=== PATIENT | male | born 1960 | race Two or more races ===

== ENCOUNTER 2019-08-29 16:32 | Inpatient (IN) | payer MEDICARE, OTHER ==
[~2019-08-29] VITALS: Ht 167.6 cm; Wt 68.5 kg
[2019-08-29] MEDS: Phenylephrine 50 MG in D5W 245 ML IV SCH (01:20)
--- NOTE | 2019-08-29 16:32 | NUR ---
ED Nurse Note: Pt brought in by ambulance d/t shortness of breath and altered mental status. Per pt's partner, pt was having difficulty breathing for 2 days, but refused to see the doctor. He said that the pt became worse today, and he started hallucinating things that were not there. Pt is short of breath, tacypneic, and audible ronchi noted. RT @ bedside. Pt is noted to be cold and diaphoretic. Pt unable to speak in full sentences. Pt's baseline is A+Ox4, but he is altered mentally in ED. IV inserted on right AC by paramedics. Left AC inserted in ED. Pt is tachycardic @ 110 bpm. O2 saturation 100% on 15 L non rebreather. Respiratory rate 32. Rectal temp 97.3. Pt placed on monitored bed.
[2019-08-29 16:40] VITALS: BP 73/40
[2019-08-29] MEDS ORDERED: Vancomycin 1 GM in NS 275 ML IV ONE (16:45)
[2019-08-29] MEDS ORDERED: Piperacillin/Tazobactam 3.375 GM in NS 110 ML IVPB ONE (16:45)
--- NOTE | 2019-08-29 16:46 | Emergency Room Report ---
History of Present Illness General Chief Complaint: Dyspnea/Respdistress Source: EMS Present Illness HPI Disclaimer: Please note that this report is being documented using DRAGON technology. This can lead to erroneous entry secondary to incorrect interpretation by the dictating instrument. HPI: 59-year-old male history of HIV, nonspecified intrathoracic surgery presents for evaluation of shortness of breath. He arrives by EMS. EMS states they were called to the house for worsening respiratory status over the past hour however he has been having difficulty breathing and cough over the past few days. The patient appears confused and mostly nonverbal. He is grunting and tachypneic. They found him hypoxic saturating in the low 80s but improved with nonrebreather. They also found him hypotensive with systolics in the 70s. Did not start IV fluids as they noted diffuse crackles and concern of fluid overload. Unknown whether or not the patient is actively being treated for HIV. Cannot obtain any additional history from patient PMH: Unable to obtain PSH: Unable to obtain Allergies: Unable to obtain Social Hx: Unable to obtain Allergies: Coded Allergies: No Known Allergies (Unverified , 08/29/19) Nursing Documentation-PMH Hx Hypertension: Yes Review of Systems All Other Systems: limited - Unable to obtain from patient due to clinical condition Physical Exam Vital Signs Date Time Temp Pulse Resp B/P (MAP) Pulse Ox O2 Delivery O2 Flow Rate FiO2 08/29/19 16:25 110 22 73/40 (51) 94 Simple Mask 10.0 General: Awake, moderate respiratory distress, hypotensive HEENT: NC/AT. EOMI. Cardiovascular: Tachycardic. S1 and S2 normal. No murmur appreciated Resp: Tachypnea, slight increase in work of breathing. Intermittent cough. Diffuse crackles bilaterally. On a nonrebreather saturating 94% on 10 L Abdomen: Abdomen is soft, nondistended. Nontender Skin: Intact. No abrasions, laceration or rash over the exposed skin MSK: Normal tone and bulk. Moving all extremities. No obvious deformity. No lower extremity edema Neuro: Awake, not answering verbally. Making good eye contact. Moving extremities Procedures Critical Care Time Critical Care Time Total critical care time: Approximately 65 minutes Due to a high probability of clinically significant, life threatening deterioration, the patient required the highest level of preparedness to intervene emergently and I personally spent this critical care time directly and personally managing the patient. This critical care time included obtaining a history, examining the patient, pulse oximetry, ordering and reviewing studies , ordering treatments, evaluating response to treatment and updating management plan as needed, frequent reassessment and discussion with other providers as well as arranging for ultimate disposition. This critical to care time was performed to assess and manage the high probability of life-threatening deterioration that could result in multiorgan failure. This critical care time is separate from the separately billable procedures and treating other patients. Central Line Central Line : Consent: Emergent Central Line Lumen: triple Maximal Sterile Barrier Tech: yes cap, yes mask, yes sterile gown, yes sterile gloves, yes large sterile sheet, yes hand hygiene, yes chlorhexidine prep No Max Barrier Tech Because: emergency insertion Central Line Postion: internal jugular (R) Anesthesia: Lidocaine cc's of anesthesia: 5 Complications: none Central Line Post Position: sutured, good blood return, position confirmed w / CXR Attempts: One Patient Tolerated: Well Complications: None Intubation Intubation : Consent: Emergent Time of Intubation: 21:00 Intubation Method: orotracheal Tube Size (cm): 7.5 Medications: Etomidate - 20mg, Rocuronium - 100mg Breath Sounds after Intubation: equal Intubation Complications: no complications Post Intubation Xray: Yes Progress/Xray Impression: ET tube in appropriate position Attempts: One Patient Tolerated: Well Complications: None Medical Decision Making Diagnostic Impression: Primary Impression: Pneumonia Additional Impressions: Sepsis NAIMA (acute kidney injury) ER Course 59-year-old male history of HIV presents for evaluation of respiratory distress. He was found hypotensive and hypoxic. Biggest concern for sepsis, pneumonia, bronchitis, ACS, COPD, CHF exacerbations. Start broad metabolic infectious work-up. Sepsis level fluids initiated. He will be treated empirically with broad antibiotics. He will require admission. Laboratory Tests Test 08/29/19 16:39 08/29/19 16:40 08/29/19 17:14 08/29/19 18:00 Arterial Blood pH 7.190 (7.350-7.450) Arterial Blood Partial Pressure CO2 34.4 mmHg (35.0-45.0) L Arterial Blood Partial Pressure O2 225.1 mmHg (75.0-100.0) H Arterial Blood HCO3 12.8 mmol/L (22.0-26.0) *L Arterial Blood Oxygen Saturation 98.7 % (95-100) Arterial Blood Base Excess -14.3 (-2-2) *L Kash Test Positive White Blood Count 4.2 K/UL (4.8-10.8) L Pending Red Blood Count 3.66 M/UL (4.70-6.10) L Hemoglobin 10.1 G/DL (14.2-18.0) L Hematocrit 34.4 % (42.0-52.0) L Mean Corpuscular Volume 94 FL (80-99) Mean Corpuscular Hemoglobin 27.5 PG (27.0-31.0) Mean Corpuscular Hemoglobin Concent 29.3 G/DL (32.0-36.0) L Red Cell Distribution Width 18.1 % (11.6-14.8) H Platelet Count 86 K/UL (150-450) L Mean Platelet Volume 11.8 FL (6.5-10.1) H Neutrophils (%) (Auto) % (45.0-75.0) Lymphocytes (%) (Auto) % (20.0-45.0) Monocytes (%) (Auto) % (1.0-10.0) Eosinophils (%) (Auto) % (0.0-3.0) Basophils (%) (Auto) % (0.0-2.0) Differential Total Cells Counted 100 Neutrophils % (Manual) 40 % (45-75) L Lymphocytes % (Manual) 26 % (20-45) Monocytes % (Manual) 8 % (1-10) Eosinophils % (Manual) 0 % (0-3) Basophils % (Manual) 0 % (0-2) Metamyelocytes % 1 % (0-0) H Myelocytes % 2 % (0-0) H Band Neutrophils 23 % (0-8) H Nucleated Red Blood Cells 6 /100 WBC Reactive Lymphocytes 1+ Platelet Estimate Decreased L Platelet Morphology Normal Polychromasia 1+ Anisocytosis 1+ Macrocytosis 1+ Sodium Level 135 MMOL/L (136-145) L Potassium Level 3.7 MMOL/L (3.5-5.1) Chloride Level 94 MMOL/L (98-107) L Carbon Dioxide Level 16 MMOL/L (21-32) L Anion Gap 25 mmol/L (5-15) H Blood Urea Nitrogen 65 mg/dL (7-18) H Creatinine 3.3 MG/DL (0.55-1.30) H Estimate Glomerular Filtration Rate 19.4 mL/min (>60) Glucose Level 109 MG/DL (74-106) H Lactic Acid Level 16.00 mmol/L (0.4-2.0) H 10.60 mmol/L (0.66-2.22) H Calcium Level 9.1 MG/DL (8.5-10.1) Phosphorus Level 11.6 MG/DL (2.5-4.9) H Magnesium Level 4.2 MG/DL (1.8-2.4) H Total Bilirubin 1.0 MG/DL (0.2-1.0) Aspartate Amino Transferase (AST) 66 U/L (15-37) H Alanine Aminotransferase (ALT) 21 U/L (12-78) Alkaline Phosphatase 172 U/L (46-116) H Total Creatine Kinase 19 U/L (26-308) L Creatine Kinase MB 0.8 NG/ML (0.0-3.6) Creatine Kinase MB Relative Index 4.2 Troponin I 0.000 ng/mL (0.000-0.056) Pro-B-Type Natriuretic Peptide 4385 pg/mL (0-125) H Total Protein 6.4 G/DL (6.4-8.2) Albumin 1.6 G/DL (3.4-5.0) L Globulin 4.8 g/dL Albumin/Globulin Ratio 0.3 (1.0-2.7) L Urine Color Brown Urine Appearance Slightly cloudy Urine pH 5 (4.5-8.0) Urine Specific Grundy 1.015 (1.005-1.035) Urine Protein 2+ (NEGATIVE) H Urine Glucose (UA) Negative (NEGATIVE) Urine Ketones 1+ (NEGATIVE) H Urine Blood 4+ (NEGATIVE) H Urine Nitrite Negative (NEGATIVE) Urine Bilirubin 1+ (NEGATIVE) H Urine Ictotest Negative (NEGATIVE) Urine Urobilinogen 8 MG/DL (0.0-1.0) H Urine Leukocyte Esterase 1+ (NEGATIVE) H Urine RBC 5-10 /HPF (0 - 0) H Urine WBC 15-20 /HPF (0 - 0) H Urine Squamous Epithelial Cells Few /LPF (NONE/OCC) Urine Bacteria Moderate /HPF (NONE) H Lymphocytes Pending Percent CD3 Cells Pending Absolute CD3 Count Pending Percent CD4 Cells Pending Absolute CD4 Count Pending T-Lymphocyte CD4/CD8 Ratio Pending Percent CD8 Cells Pending Absolute CD8 Count Pending Microbiology Date/Time Source Procedure Growth Status 08/29/19 16:40 Nasal Nares - Final Complete 08/29/19 16:40 Nasal Nares - Final Complete EKG Diagnostic Results EKG Time: 16:25 Rate: tachycardiac Other Impression Tachycardic, otherwise difficult to interpret due to significant baseline irregularity Rhythm Strip Diag. Results Rhythm Strip Time: 16:25 EP Interpretation: yes Rate: 110s Chest X-Ray Diagnostic Results Chest X-Ray Diagnostic Results : Chest X-Ray Ordered: Yes # of Views/Limited/Complete: 1 View Indication: Shortness of Breath EP Interpretation: Yes Interpretation: other - Bilateral infiltrates, slight effusion on the right , opacification of the right upper lobe possibly postsurgical Impression: Other - Bilaterally infiltrates consistent with pneumonia Other X-Ray Diagnostic Results Other X-Ray Diagnostic Results : X-Ray ordered: Line placement chest # of Views/Limited Vs Complete: 1 View Indication: Other - Line placement EP Interpretation: Yes Interpretation: other - Right internal jugular projecting over the right atrium. Otherwise bilateral infiltrates and small effusion in the right with opacification of the right upper lobe as previously demonstrated Impression: Other - Central line appropriate position. Other findings as above Reevaluation Time: 19:01 Last Vital Signs Date Time Temp Pulse Resp B/P (MAP) Pulse Ox O2 Delivery O2 Flow Rate FiO2 08/29/19 16:25 110 22 73/40 (51) 94 Simple Mask 10.0 Reevaluation Impression Chest x-ray shows bilateral infiltrates consistent with pneumonia. Family is now present and states he has been noncompliant with his medications for some time. Patient has AIDS and has not been taking his retroviral's. Concern for both community-acquired and PCP pneumonia given his AIDS status. Will send a CD4 panel. Patient already received vancomycin and Zosyn on arrival empirically. Will add Bactrim IV. Central line was placed as the patient remains hypotensive despite IV fluids. Starting levo fed now with minor improvements. His lactate is greater than 16. Very poor prognosis given his current condition. Bicarb ordered. BiPAP is started while family debates intubation. The patient will be admitted to the ICU. Family states he is full code. He remains nonverbal but sometimes nods in agreement. 2100: Patient was intubated for worsening respiratory status under glide scope visualization. Oxygenation is now stable. Will repeat ABG. Continues to receive Levophed though may need to add a second pressor now that he is intubated. Will monitor closely. He is admitted to the ICU however there are no beds available at this time and the patient will be boarding in the emergency department. Disposition: ADMITTED INPATIENT Condition: Critical Scripts No Active Prescriptions or Reported Meds Nadeem Rodriguez MD Aug 29, 2019 16:46
[2019-08-29 17:02] LABS: HEMATOCRIT 34.4 % (42.0-52.0); HEMOGLOBIN 10.1 G/DL (14.2-18.0); MEAN CORPUSCULAR VOLUME 94 FL (80-99); PLATELET COUNT 86 K/UL (150-450); RED BLOOD COUNT 3.66 M/UL (4.70-6.10); RED CELL DISTRIBUTION WIDTH 18.1 % (11.6-14.8); WHITE BLOOD COUNT 4.2 K/UL (4.8-10.8)
[2019-08-29 17:22] LABS: APPEARANCE,URINE SLIGHTLY CLOUDY; BILIRUBIN, URINE 1+ (NEGATIVE); COLOR,URINE BROWN; GLUCOSE, URINE (UA) NEGATIVE (NEGATIVE); KETONES,URINE 1+ (NEGATIVE); LEUKOCYTE ESTERASE ,URINE 1+ (NEGATIVE); NITRITE,URINE NEGATIVE (NEGATIVE); PH,URINE 5 (4.5-8.0); PROTEIN,URINE 2+ (NEGATIVE); UROBILINOGEN,URINE 8 MG/DL (0.0-1.0)
[2019-08-29 17:30] LABS: ANION GAP 25 mmol/L (5-15); BLOOD UREA NITROGEN 65 mg/dL (7-18); CALCIUM 9.1 MG/DL (8.5-10.1); CARBON DIOXIDE 16 MMOL/L (21-32); CHLORIDE 94 MMOL/L (98-107); CREATININE 3.3 MG/DL (0.55-1.30); POTASSIUM 3.7 MMOL/L (3.5-5.1); SODIUM 135 MMOL/L (136-145)
--- NOTE | 2019-08-29 17:30 | NUR ---
ED Nurse Note: Pt's blood pressure is 69/48. Made ED MD aware. He said to prepare for central line. No other new orders.
[2019-08-29 17:44] LABS: ALANINE AMINOTRANSFERASE 21 U/L (12-78); ALBUMIN 1.6 G/DL (3.4-5.0); ALBUMIN/GLOBULIN RATIO 0.3 (1.0-2.7); ALKALINE PHOSPHATASE 172 U/L (46-116); ASPARTATE AMINO TRANSFERASE 66 U/L (15-37); CKMB 0.8 NG/ML (0.0-3.6); CREATINE KINASE 19 U/L (26-308); PHOSPHORUS 11.6 MG/DL (2.5-4.9)
[2019-08-29] MEDS ORDERED: Lidocaine 1% 10mg/ml/EPI 0.01mg/ml 30ml INJ ONE ×2 (18:12→18:30)
[2019-08-29 18:20] VITALS: BP 78/42
--- NOTE | 2019-08-29 18:32 | NUR ---
ED Nurse Note: Triple lumen central line inserted.
[2019-08-29] MEDS ORDERED: Trimethoprim/Sulfamethoxazole 20 ML in D5W 500ml 550 ML IV ONE ×2 (18:45→23:30)
[2019-08-29] MEDS ORDERED: Sodium Bicarbonate 50ml Carp IV ONE ×3 (19:15→22:15)
[2019-08-29 20:21] VITALS: BP 94/30
--- NOTE | 2019-08-29 20:52 | NUR ---
ED Nurse Note: Pt intubated successfully. ETT 7.5/25 cm @ the lip. VENT SETTINGS: AC 16 VT 500 100% Peep 5.
[2019-08-29] MEDS ORDERED: Rocuronium Bromide 50mg/5ml Inj IV ONE (21:00)
[2019-08-29] MEDS ORDERED: Etomidate 40mg/20ml Inj IV ONE (21:00)
[2019-08-29] MEDS ORDERED: Vasopressin 100 UNITS in NS 95 ML IV SCH ×2 (21:30→23:30)
[2019-08-29] MEDS ORDERED: Levophed 4mg/4mL Inj IV ONE (21:39)
--- NOTE | 2019-08-29 21:45 | Pulmonolgy Critical Care Note ---
Critical Care - Asmt/Plan Assessment/Plan: Pulmonary CCM Consultation HPI: Patient is a 59-year-old male history of HIV, previous surgery, admitted with shortness of breath, noted to have Pneumonia, Respiratory Failure. Patient has been having difficulty breathing and cough over the past few days. Noted to be confused on admission, grunting and tachypneic, hypoxic, hypotensive requiring intubation and central line. Cannot obtain any history from patient PMH: HIV, Thoracic Surgery, Hypertension PSH: Unable to obtain Allergies: Unable to obtain Social Hx: Unable to obtain Allergies: No Known Allergies All Other Systems: limited Physical Exam Vital Signs Date Time Temp Pulse Resp B/P (MAP) Pulse Ox O2 Delivery O2 Flow Rate FiO2 08/29/19 16:25 110 22 73/40 (51) 94 Simple Mask 10.0 General: Sedated on the mechainical ventilator, on IV pressors HEENT: NCAT. EOMI. Moist mm Cardiovascular: Tachycardic. S1 and S2 normal. No murmur appreciated Resp: Diffuse crackles bilaterally. Equal BS Abdomen: Abdomen is soft, nondistended. Nontender Skin: Intact. No abrasions, laceration or rash over the exposed skin No edema MSK: Normal tone and bulk. Moving all extremities. No obvious deformity. Neuro: Sedated, no focal signs, no seizures Impression: Pneumonia Sepsis Acute kidney injury HIV Possible COPD Previous Thoracic Surgery Previous Hypertension Plan - IV Antibiotics - ACVC, adjust - Adjust FIO2 - Solumedrol - HHN - PPX - Sputum and BC, Sputum PCP - IVF PRN - Pressors PRN - Monitor labs Laboratory Tests Test 08/29/19 16:39 08/29/19 16:40 08/29/19 17:14 08/29/19 18:00 Arterial Blood pH 7.190 (7.350-7.450) Arterial Blood Partial Pressure CO2 34.4 mmHg (35.0-45.0) L Arterial Blood Partial Pressure O2 225.1 mmHg (75.0-100.0) H Arterial Blood HCO3 12.8 mmol/L (22.0-26.0) *L Arterial Blood Oxygen Saturation 98.7 % (95-100) Arterial Blood Base Excess -14.3 (-2-2) *L Kash Test Positive White Blood Count 4.2 K/UL (4.8-10.8) L Pending Red Blood Count 3.66 M/UL (4.70-6.10) L Hemoglobin 10.1 G/DL (14.2-18.0) L Hematocrit 34.4 % (42.0-52.0) L Mean Corpuscular Volume 94 FL (80-99) Mean Corpuscular Hemoglobin 27.5 PG (27.0-31.0) Mean Corpuscular Hemoglobin Concent 29.3 G/DL (32.0-36.0) L Red Cell Distribution Width 18.1 % (11.6-14.8) H Platelet Count 86 K/UL (150-450) L Mean Platelet Volume 11.8 FL (6.5-10.1) H Neutrophils (%) (Auto) % (45.0-75.0) Lymphocytes (%) (Auto) % (20.0-45.0) Monocytes (%) (Auto) % (1.0-10.0) Eosinophils (%) (Auto) % (0.0-3.0) Basophils (%) (Auto) % (0.0-2.0) Differential Total Cells Counted 100 Neutrophils % (Manual) 40 % (45-75) L Lymphocytes % (Manual) 26 % (20-45) Monocytes % (Manual) 8 % (1-10) Eosinophils % (Manual) 0 % (0-3) Basophils % (Manual) 0 % (0-2) Metamyelocytes % 1 % (0-0) H Myelocytes % 2 % (0-0) H Band Neutrophils 23 % (0-8) H Nucleated Red Blood Cells 6 /100 WBC Reactive Lymphocytes 1+ Platelet Estimate Decreased L Platelet Morphology Normal Polychromasia 1+ Anisocytosis 1+ Macrocytosis 1+ Sodium Level 135 MMOL/L (136-145) L Potassium Level 3.7 MMOL/L (3.5-5.1) Chloride Level 94 MMOL/L (98-107) L Carbon Dioxide Level 16 MMOL/L (21-32) L Anion Gap 25 mmol/L (5-15) H Blood Urea Nitrogen 65 mg/dL (7-18) H Creatinine 3.3 MG/DL (0.55-1.30) H Estimate Glomerular Filtration Rate 19.4 mL/min (>60) Glucose Level 109 MG/DL (74-106) H Lactic Acid Level 16.00 mmol/L (0.4-2.0) H 10.60 mmol/L (0.66-2.22) H Calcium Level 9.1 MG/DL (8.5-10.1) Phosphorus Level 11.6 MG/DL (2.5-4.9) H Magnesium Level 4.2 MG/DL (1.8-2.4) H Total Bilirubin 1.0 MG/DL (0.2-1.0) Aspartate Amino Transferase (AST) 66 U/L (15-37) H Alanine Aminotransferase (ALT) 21 U/L (12-78) Alkaline Phosphatase 172 U/L (46-116) H Total Creatine Kinase 19 U/L (26-308) L Creatine Kinase MB 0.8 NG/ML (0.0-3.6) Creatine Kinase MB Relative Index 4.2 Troponin I 0.000 ng/mL (0.000-0.056) Pro-B-Type Natriuretic Peptide 4385 pg/mL (0-125) H Total Protein 6.4 G/DL (6.4-8.2) Albumin 1.6 G/DL (3.4-5.0) L Globulin 4.8 g/dL Albumin/Globulin Ratio 0.3 (1.0-2.7) L Urine Color Brown Urine Appearance Slightly cloudy Urine pH 5 (4.5-8.0) Urine Specific Garner 1.015 (1.005-1.035) Urine Protein 2+ (NEGATIVE) H Urine Glucose (UA) Negative (NEGATIVE) Urine Ketones 1+ (NEGATIVE) H Urine Blood 4+ (NEGATIVE) H Urine Nitrite Negative (NEGATIVE) Urine Bilirubin 1+ (NEGATIVE) H Urine Ictotest Negative (NEGATIVE) Urine Urobilinogen 8 MG/DL (0.0-1.0) H Urine Leukocyte Esterase 1+ (NEGATIVE) H Urine RBC 5-10 /HPF (0 - 0) H Urine WBC 15-20 /HPF (0 - 0) H Urine Squamous Epithelial Cells Few /LPF (NONE/OCC) Urine Bacteria Moderate /HPF (NONE) H Lymphocytes Pending Percent CD3 Cells Pending Absolute CD3 Count Pending Percent CD4 Cells Pending Absolute CD4 Count Pending T-Lymphocyte CD4/CD8 Ratio Pending Percent CD8 Cells Pending Absolute CD8 Count Pending Microbiology Date/Time Source Procedure Growth Status 08/29/19 16:40 Nasal Nares - Final Complete 08/29/19 16:40 Nasal Nares - Final Complete EKG: tachycardiac, difficult to interpret due to significant baseline irregularity Chest X-Ray: Right internal jugular projecting over the right atrium. Otherwise bilateral infiltrates and small effusion in the right with opacification of the right upper lobe as previously demonstrated Critical Care - Objective Last 24 Hour Vital Signs Date Time Temp Pulse Resp B/P (MAP) Pulse Ox O2 Delivery O2 Flow Rate FiO2 08/29/19 21:03 119 16 100 08/29/19 20:30 82/45 08/29/19 20:21 97.0 98 34 94/30 92 Bi-pap 10.0 80 08/29/19 20:15 94/30 08/29/19 20:00 96/43 08/29/19 19:45 98/39 08/29/19 19:35 103/48 08/29/19 19:30 95/50 08/29/19 19:25 91/42 08/29/19 19:20 88/45 08/29/19 19:15 100 40 92 Facial 80 08/29/19 19:15 78/41 08/29/19 19:10 75/46 08/29/19 19:05 74/50 08/29/19 19:00 71/33 08/29/19 18:55 79/39 08/29/19 18:50 59/28 08/29/19 18:45 49/35 08/29/19 18:38 67/16 08/29/19 18:20 99 22 78/42 92 Non-Rebreather 15.0 08/29/19 16:40 110 32 Simple Mask 10.0 08/29/19 16:40 97.3 110 22 73/40 98 Non-Rebreather 10.0 08/29/19 16:25 110 22 73/40 (51) 94 Simple Mask 10.0 Micro: Microbiology Date/Time Source Procedure Growth Status 08/29/19 16:40 Nasal Nares - Final Complete 08/29/19 16:40 Nasal Nares - Final Complete 08/29/19 19:40 Rectum Received Critical Care - Subjective ROS Limited/Unobtainable: No Condition: critical IV Access: central EKG Rhythm: Sinus Rhythm FI02: 100 Vent Support Breath Rate: 16 Vent Support Mode: AC Vent Tidal Volume: 500 Sputum Amount: Small PEEP: 5.0 PIP: 48 ET-Tube: 7.0 ET Position: 25 Napoleon Wolf MD Aug 29, 2019 21:45
--- NOTE | 2019-08-29 22:02 | NUR ---
ED Nurse Note: Fentanyl drip started at ED MD's verbal order of 5 mcg/min. Pt in deep sedation. Vasopressin drip started as well for blood pressure support.
[2019-08-29] MEDS ORDERED: DOBUTamine 250mg/250ml Premix 250 ML IV SCH (23:00)
--- NOTE | 2019-08-29 23:14 | NUR ---
NURSE NOTES: MD Wolf Called ICU at this time. Orders received and read back. confirmed all orders.
[2019-08-29] MEDS ORDERED: Phenylephrine 100 MG in NS 240 ML IV SCH (23:15)
[2019-08-29] MEDS ORDERED: Phenylephrine 10mg/ml 5ml vial IV ONE (23:19)
[2019-08-29] MEDS ORDERED: fentaNYL Citrate 2,500 MCG in NS 200 ML IV PRN (23:30)
[2019-08-29] MEDS ORDERED: Sodium Bicarbonate 150 ML in D5W 1000ml 1,000 ML IV SCH (23:30)
[2019-08-29] MEDS ORDERED: Acetaminophen 650mg/20.3ml NG PRN (23:30)
--- NOTE | 2019-08-29 23:36 | NUR ---
ED Nurse Note: Report given to WILLIS Ryan. Plan of care endorsed. Pt on three pressers and fentanyl drip for sedation.
[2019-08-29] MEDS ORDERED: Solu-MEDROL 40mg Inj ONE (23:42)
--- NOTE | 2019-08-29 23:45 | NUR ---
NURSE NOTES: MD Wolf on the unit. Ordered for patient be placed on droplet Precaution, Matias to be started also to maintain MAP >65
[2019-08-30] VITALS (25 sets, daily range): BP systolic 39–133; BP diastolic 11–94
--- NOTE | 2019-08-30 00:15 | NUR ---
ER Nurse Note: Pt remains same condition during report. Admitting MD saw pt and disscussed with family. Solu-Medrol given. Increased dose for Phenylephrine at 160 mcg/min. New bag of Norepinephrine hung with rate of 30 mcg/min. Pt intubated with ventilator. Saab intact. Family at bedside. Will continue to montior.
--- NOTE | 2019-08-30 00:55 | NUR ---
ER Nurse Note: Report given to WILLIS Newman for continuity of care. No change in baseline. Lactic drawn and sent to lab. All orders completed per ERMD orders.
[2019-08-30] MEDS ORDERED: Zosyn 3.375gm inj ONE (00:58)
[2019-08-30] MEDS ORDERED: Vancomycin 1gm vial IVPB ONE (00:58)
[2019-08-30] MEDS ORDERED: Sodium Bicarbonate 8.4% 50ml Inj ONE (00:58)
[2019-08-30] MEDS ORDERED: Albuterol/Ipratropium 3ml neb HHN SCH (01:00)
--- NOTE | 2019-08-30 01:00 | NUR ---
NURSE NOTES: Received pt and report from WILLIS Ryan. Pt's in critical condition, obtunded, non-responsive, intubated with ETT 7.5, 25LL, AC28, TV500, FiO2 100%, PEEP 7. Pt brought to ER with from home with resp distress, Sepsis, AMS, hx of + HIV, lung CA, brain tumor per pt's family member, also per family member pt had stopped taking his meds couple months. Currently still FULL CODE. BP80/50, HR 102, O2 99%, RR 23. Temp 95.5F rectally. Noted Right IJ TLC running max of LEvophed at 30mcg/min, Vasopressin 0.04 units/min, phenylephrine 240mcg/min. NPO at this time. Abdomen distended. Skin cold to touch. No ulcers noted. DR Wolf putting admission orders. All orders noted and carried out. Will continue to monitor.
[2019-08-30] MEDS ORDERED: Sodium Bicarbonate 50ml Carp ONE ×2 (01:05→03:51)
[2019-08-30] MEDS: Solu-MEDROL 40mg Inj IVP SCH ×2 (01:27→05:28)
[2019-08-30] MEDS ORDERED: Norepinephrine Bitartrate 16 MG in NS 500 ML IV PRN (01:30)
[2019-08-30] MEDS: Piperacillin/Tazobactam 3.375 GM in NS 110 ML IVPB SCH ×2 (01:38→10:00)
--- NOTE | 2019-08-30 02:00 | NUR ---
NURSE NOTES: Pt's continue with critical condition, Noted Dr Wolf about pt's BP. New orders noted and carried out. Will continue to monitor.
[2019-08-30] MEDS ORDERED: EPINEPHrine 1mg/1ml Amp 1 MG in D5W 249 ML IV SCH (02:15)
[2019-08-30] MEDS ORDERED: EPINEPHrine 1mg/1ml Amp ONE (02:18)
--- NOTE | 2019-08-30 02:28 | Diagnostic Imaging Report ---
Indication: NG tube placement Comparison: None Single view of the abdomen obtained Findings: The NG tube is in good position with the proximal port and tip both well within the body of the stomach. IMPRESSION: NG tube in good position
[2019-08-30] MEDS: Albuterol/Ipratropium 3ml neb HHN SCH ×2 (02:46→07:30)
--- NOTE | 2019-08-30 02:50 | NUR ---
RESPIRATORY NOTE: Received pt on AC 24, 500VT, 100%, PEEP +7. Pt intubated w/ ETT @ 25cm lipline, secured by anchorfast. Pt sedated/obtunded. B/S nathaniel. rhonchi/diminished, sxn small amounts of thin, donato-brown secretions w/ occasional blood. Family present at bedside. Vent plugged into red outlet, ambubag at bedside. Pt in no apparent distress at this time. Will continue to monitor pt.
[2019-08-30] MEDS: EPINEPHrine 1mg/1ml Amp 1 MG in D5W 249 ML IV SCH ×4 (03:04→06:27)
--- NOTE | 2019-08-30 03:06 | NUR ---
NURSE NOTES: MD Wolf ordered for patient to be a 1:1 at this time.
[2019-08-30] MEDS ORDERED: Levophed 4mg/4mL Inj IV ONE (03:09)
--- NOTE | 2019-08-30 03:40 | NUR ---
RESPIRATORY NOTE: Rate changed to 28 per MD Luciano. Pt now on AC 28, 500VT, 100%, PEEP +7. Will continue to monitor pt.
[2019-08-30] MEDS ORDERED: Sodium Bicarbonate 50ml Carp IV SCH ×2 (03:45→06:00)
--- NOTE | 2019-08-30 04:17 | NUR ---
NURSE NOTES: MD Wolf called back with new orders. orders read back and confirmed by
[2019-08-30] MEDS: Phenylephrine 50 MG in D5W 245 ML IV SCH (05:27)
[2019-08-30 05:57] LABS: ANION GAP 30 mmol/L (5-15); BLOOD UREA NITROGEN 55 mg/dL (7-18); CHLORIDE 101 MMOL/L (98-107); CREATININE 2.6 MG/DL (0.55-1.30); HEMATOCRIT 20.7 % (42.0-52.0); MEAN CORPUSCULAR VOLUME 98 FL (80-99); PLATELET COUNT 21 K/UL (150-450); POTASSIUM 5.2 MMOL/L (3.5-5.1); RED BLOOD COUNT 2.12 M/UL (4.70-6.10); RED CELL DISTRIBUTION WIDTH 19.3 % (11.6-14.8); SODIUM 140 MMOL/L (136-145); WHITE BLOOD COUNT 2.8 K/UL (4.8-10.8)
[2019-08-30 06:00] LABS: HEMOGLOBIN 5.9 G/DL (14.2-18.0)
[2019-08-30] MEDS ORDERED: Vancomycin 1 GM in NS 275 ML IVPB SCH (06:00)
--- NOTE | 2019-08-30 06:00 | NUR ---
RESPIRATORY NOTE: Order received to change VT & Rate per MD Luciano after obtaining ABG. Pt now on AC 30, 550VT, 100%, PEEP +7. Will continue to monitor pt.
[2019-08-30 06:04] LABS: CARBON DIOXIDE 7 MMOL/L (21-32)
--- NOTE | 2019-08-30 06:20 | Pulmonolgy Critical Care Note ---
Critical Care - Asmt/Plan Assessment/Plan: Pulmonary CCM Consultation HPI: Patient is a 59-year-old male history of HIV, previous surgery, admitted with shortness of breath, noted to have Pneumonia, Respiratory Failure. Patient has been having difficulty breathing and cough over the past few days. Noted to be confused on admission, grunting and tachypneic, hypoxic, hypotensive requiring intubation and central line. Cannot obtain any history from patient Patient remains critically ill - maxed out on three pressors, significant drop in H+H this AM PMH: HIV, RUL Lung cancer (previous XRT/chemotherapy), Hypertension PSH: Unable to obtain Allergies: Unable to obtain Social Hx: Unable to obtain Allergies: No Known Allergies All Other Systems: limited Physical Exam Vital Signs Noted General: Sedated on the mechanical ventilator, on IV pressors HEENT: NCAT. EOMI. Moist mm, RIJ line, ETT Cardiovascular: Tachycardic. S1 and S2 normal. No murmur appreciated Resp: Diffuse crackles bilaterally. Equal BS Abdomen: Abdomen is soft, nondistended. Nontender Skin: Intact. No abrasions, laceration or rash over the exposed skin No edema MSK: Normal tone and bulk. Moving all extremities. No obvious deformity. Neuro: Sedated, no focal signs, no seizures Impression: Pneumonia Sepsis Acute kidney injury Possible GI bleed Anemia Thrombocytopenia HIV Possible COPD Previous RUL Lung cancer Previous Hypertension Plan - IV Antibiotics - IV Bactrim - IV Solumedrol - ACVC, adjust - Adjust FIO2 - Solumedrol - HHN - PPX - Protonix/SCD's - Sputum and BC, Sputum PCP - IVF PRN - IV HCO3 - TF PRBC/Platelets - Pressors PRN - Monitor labs- Full Code DW Patients partner at bedside - requests Full code - understands gravity of situation DW RN/PMD Laboratory Tests noted Microbiology Date/Time Source Procedure Growth Status 08/29/19 16:40 Nasal Nares - Final Complete 08/29/19 16:40 Nasal Nares - Final Complete EKG: tachycardiac, difficult to interpret due to significant baseline irregularity Chest X-Ray: Right internal jugular projecting over the right atrium. Otherwise bilateral infiltrates and small effusion in the right with opacification of the right upper lobe as previously demonstrated Patient seen earlier Critical Care - Objective Last 24 Hour Vital Signs Date Time Temp Pulse Resp B/P (MAP) Pulse Ox O2 Delivery O2 Flow Rate FiO2 08/30/19 05:27 100 64/43 08/30/19 05:10 100 28 100 08/30/19 05:00 47/19 08/30/19 05:00 96.4 100 28 41/15 (24) 08/30/19 04:45 100 28 46/30 (35) 08/30/19 04:32 101 28 57/29 (38) 08/30/19 04:30 101 28 43/17 (26) 08/30/19 04:15 101 28 64/51 (55) 08/30/19 04:00 Mechanical Ventilator 08/30/19 04:00 100 08/30/19 04:00 45/29 08/30/19 04:00 94 08/30/19 04:00 106 28 08/30/19 04:00 102 28 90/69 (76) 08/30/19 03:55 97 28 61/30 (40) 08/30/19 03:45 95 28 46/11 (23) 08/30/19 03:38 94 24 58/45 (49) 08/30/19 03:30 94 24 39/13 (22) 08/30/19 03:16 92 24 67/43 (51) 08/30/19 03:15 92 24 08/30/19 03:14 50/28 08/30/19 03:00 96.1 90 24 50/28 (35) 08/30/19 02:56 91 24 Mechanical Ventilator 100 08/30/19 02:52 92 24 61/46 (51) 08/30/19 02:46 90 24 Mechanical Ventilator 100 100 08/30/19 02:45 90 24 44/23 (30) 08/30/19 02:30 90 24 88/72 (77) 08/30/19 02:24 91 24 91/53 (66) 08/30/19 02:15 92 24 133/87 (102) 08/30/19 02:13 92 24 81/58 (66) 08/30/19 02:00 91 22 55/41 (46) 08/30/19 01:49 93 24 115/88 (97) 08/30/19 01:45 93 24 08/30/19 01:45 Mechanical Ventilator 08/30/19 01:30 99 24 114/82 (93) 08/30/19 01:15 95.8 97 24 118/94 (102) 08/30/19 01:08 100 24 100 08/30/19 01:06 100 24 94 Mechanical Ventilator 100 08/30/19 00:55 97.8 99 16 123/40 96 Mechanical Ventilator 10.0 100 08/30/19 00:55 97.8 99 16 123/40 96 Mechanical Ventilator 10.0 100 08/30/19 00:14 91/66 08/30/19 00:00 99 16 94/64 95 Mechanical Ventilator 10.0 100 08/29/19 23:30 100 16 100 08/29/19 23:30 74/42 08/29/19 23:22 101 47/23 08/29/19 22:30 83/46 08/29/19 22:15 72/39 08/29/19 22:00 22 Mechanical Ventilator 08/29/19 22:00 55/34 08/29/19 21:45 65/50 08/29/19 21:43 22 Mechanical Ventilator 10.0 100 08/29/19 21:30 110 16 100 08/29/19 21:15 74/52 08/29/19 21:03 119 16 100 08/29/19 21:00 68/42 08/29/19 20:30 82/45 08/29/19 20:21 97.0 98 34 94/30 92 Bi-pap 10.0 80 08/29/19 20:15 94/30 08/29/19 20:00 96/43 08/29/19 19:45 98/39 08/29/19 19:35 103/48 08/29/19 19:30 95/50 08/29/19 19:25 91/42 08/29/19 19:20 88/45 08/29/19 19:15 100 40 92 Facial 80 08/29/19 19:15 78/41 08/29/19 19:10 75/46 08/29/19 19:05 74/50 08/29/19 19:00 71/33 08/29/19 18:55 79/39 08/29/19 18:50 59/28 08/29/19 18:45 49/35 08/29/19 18:38 67/16 08/29/19 18:20 99 22 78/42 92 Non-Rebreather 15.0 08/29/19 16:40 110 32 Simple Mask 10.0 08/29/19 16:40 97.3 110 22 73/40 98 Non-Rebreather 10.0 08/29/19 16:25 110 22 73/40 (51) 94 Simple Mask 10.0 Micro: Microbiology Date/Time Source Procedure Growth Status 08/29/19 16:40 Nasal Nares - Final Complete 08/29/19 16:40 Nasal Nares - Final Complete 08/29/19 19:40 Rectum Received Critical Care - Subjective ROS Limited/Unobtainable: No Condition: critical IV Access: central EKG Rhythm: Sinus Tachycardia FI02: 100 Vent Support Breath Rate: 30 Vent Support Mode: AC Vent Tidal Volume: 550 Sputum Amount: None PEEP: 7.0 PIP: 43 I&O: Intake and Output 08/29/19 08/30/19 19:00 07:00 Intake Total 0 ml 1048.15 ml Output Total 50 ml Balance 0 ml 998.15 ml Intake Oral 0 ml IV Total 1048.15 ml Output Urine Total 50 ml ET-Tube: 7.5 ET Position: 25 Napoleon Wolf MD Aug 30, 2019 06:20
[2019-08-30] MEDS ORDERED: Pantoprazole Inj IVP SCH ×3 (06:30→21:00)
--- NOTE | 2019-08-30 06:43 | NUR ---
NURSE NOTES: Family has decided to withdrawl all care at this moment, spoke with MD Wolf and MD Velázquez at this time. they are okay with this order
--- NOTE | 2019-08-30 06:47 | NUR ---
NURSE NOTES: [facility] was called and informed them of patients condition, [facility] said to call back once patient expires.
--- NOTE | 2019-08-30 06:50 | NUR ---
NURSE NOTES: All meds stopped and RT at bedside to extubate the pt, per family's wishes. All MDs aware.
--- NOTE | 2019-08-30 06:58 | NUR ---
NURSE NOTES: [facility] was called and informed them of patients , [facility] said to call back once patient has a pronounced time of by MD so [facility] can close the case.
--- NOTE | 2019-08-30 07:00 | NUR ---
HAND-OFF: Report given to WILLIS Johnson.
--- NOTE | 2019-08-30 07:20 | NUR ---
RESPIRATORY NOTES: Terminally extubated Patient.
--- NOTE | 2019-08-30 07:37 | NUR ---
NURSE NOTES: Pt received from WILLIS Newman. pronounced previously at 0720. Per Trent, [facility] mort[facility] already contacted. Preparing body for post-mortem care at this time. 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
[2019-08-30] MEDS ORDERED: Trimethoprim/Sulfamethoxazole 20 ML in D5W 500ml 550 ML IV SCH (08:00)
[2019-08-30] MEDS ORDERED: Solu-MEDROL 40mg Inj IVP SCH (09:00)
[2019-08-30] MEDS ORDERED: Heparin 5000 units/ml inj SUBQ SCH (09:00)
[2019-08-30] MEDS ORDERED: Azithromycin 500 MG in NS 275 ML IV SCH (09:00)
--- NOTE | 2019-08-30 09:30 | NUR ---
NURSE NOTES: Post mortem care completed.
--- NOTE | 2019-08-30 10:29 | History & Physical ---
History and Physical History & Physicial seen and examined. Dictation completed on 1022 hrs Rafael Velázquez MD Aug 30, 2019 10:29
--- NOTE | 2019-08-30 10:31 | General Progress Note ---
Assessment/Plan Status: stable Assessment/Plan: Full Dictatio in progress: 1- Septic Shock 2- VDRF 3- HIV 4- Lung CA 5- Non compliance with medication Plan: Family meeting with the partner and the sister at the bedside Medically current care, does not change the out come Encouraged for palliative extubation Cardiology, Pulmonary, Nephrology and ID were consulted Subjective Allergies: Coded Allergies: No Known Allergies (Unverified , 08/29/19) Objective Last 24 Hour Vital Signs Date Time Temp Pulse Resp B/P (MAP) Pulse Ox O2 Delivery O2 Flow Rate FiO2 08/30/19 06:00 98 30 80/49 (59) 08/30/19 05:27 100 64/43 08/30/19 05:10 100 28 100 08/30/19 05:00 47/19 08/30/19 05:00 96.4 100 28 41/15 (24) 08/30/19 04:45 100 28 46/30 (35) 08/30/19 04:32 101 28 57/29 (38) 08/30/19 04:30 101 28 43/17 (26) 08/30/19 04:15 101 28 64/51 (55) 08/30/19 04:00 Mechanical Ventilator 08/30/19 04:00 100 08/30/19 04:00 45/29 08/30/19 04:00 94 08/30/19 04:00 106 28 08/30/19 04:00 102 28 90/69 (76) 08/30/19 03:55 97 28 61/30 (40) 08/30/19 03:45 95 28 46/11 (23) 08/30/19 03:38 94 24 58/45 (49) 08/30/19 03:30 94 24 39/13 (22) 08/30/19 03:16 92 24 67/43 (51) 08/30/19 03:15 92 24 08/30/19 03:14 50/28 08/30/19 03:00 96.1 90 24 50/28 (35) 08/30/19 02:56 91 24 Mechanical Ventilator 100 08/30/19 02:52 92 24 61/46 (51) 08/30/19 02:46 90 24 Mechanical Ventilator 100 100 08/30/19 02:45 90 24 44/23 (30) 08/30/19 02:30 90 24 88/72 (77) 08/30/19 02:24 91 24 91/53 (66) 08/30/19 02:15 92 24 133/87 (102) 08/30/19 02:13 92 24 81/58 (66) 08/30/19 02:00 91 22 55/41 (46) 08/30/19 01:49 93 24 115/88 (97) 08/30/19 01:45 93 24 08/30/19 01:45 Mechanical Ventilator 08/30/19 01:30 99 24 114/82 (93) 08/30/19 01:15 95.8 97 24 118/94 (102) 08/30/19 01:08 100 24 100 08/30/19 01:06 100 24 94 Mechanical Ventilator 100 08/30/19 00:55 97.8 99 16 123/40 96 Mechanical Ventilator 10.0 100 08/30/19 00:55 97.8 99 16 123/40 96 Mechanical Ventilator 10.0 100 08/30/19 00:14 91/66 08/30/19 00:00 99 16 94/64 95 Mechanical Ventilator 10.0 100 08/29/19 23:30 100 16 100 08/29/19 23:30 74/42 08/29/19 23:22 101 47/23 08/29/19 22:30 83/46 08/29/19 22:15 72/39 08/29/19 22:00 22 Mechanical Ventilator 08/29/19 22:00 55/34 08/29/19 21:45 65/50 08/29/19 21:43 22 Mechanical Ventilator 10.0 100 08/29/19 21:30 110 16 100 08/29/19 21:15 74/52 08/29/19 21:03 119 16 100 08/29/19 21:00 68/42 08/29/19 20:30 82/45 08/29/19 20:21 97.0 98 34 94/30 92 Bi-pap 10.0 80 08/29/19 20:15 94/30 08/29/19 20:00 96/43 08/29/19 19:45 98/39 08/29/19 19:35 103/48 08/29/19 19:30 95/50 08/29/19 19:25 91/42 08/29/19 19:20 88/45 08/29/19 19:15 100 40 92 Facial 80 08/29/19 19:15 78/41 08/29/19 19:10 75/46 08/29/19 19:05 74/50 08/29/19 19:00 71/33 08/29/19 18:55 79/39 08/29/19 18:50 59/28 08/29/19 18:45 49/35 08/29/19 18:38 67/16 08/29/19 18:20 99 22 78/42 92 Non-Rebreather 15.0 08/29/19 16:40 110 32 Simple Mask 10.0 08/29/19 16:40 97.3 110 22 73/40 98 Non-Rebreather 10.0 08/29/19 16:25 110 22 73/40 (51) 94 Simple Mask 10.0 Intake and Output 08/29/19 08/30/19 19:00 07:00 Intake Total 0 ml 1660.26 ml Output Total 50 ml Balance 0 ml 1610.26 ml Intake Oral 0 ml IV Total 1660.26 ml Output Urine Total 50 ml Laboratory Tests 08/29/19 16:39: Arterial Blood pH 7.190*L, Arterial Blood Partial Pressure CO2 34.4L, Arterial Blood Partial Pressure O2 225.1H, Arterial Blood HCO3 12.8*L, Arterial Blood Oxygen Saturation 98.7, Arterial Blood Base Excess -14.3*L, Kash Test Positive 08/29/19 16:40: White Blood Count 4.2L, Red Blood Count 3.66L, Hemoglobin 10.1L, Hematocrit 34.4L, Mean Corpuscular Volume 94, Mean Corpuscular Hemoglobin 27.5, Mean Corpuscular Hemoglobin Concent 29.3L, Red Cell Distribution Width 18.1H, Platelet Count 86L, Mean Platelet Volume 11.8H, Neutrophils (%) (Auto) , Lymphocytes (%) (Auto) , Monocytes (%) (Auto) , Eosinophils (%) (Auto) , Basophils (%) (Auto) , Differential Total Cells Counted 100, Neutrophils % ( Manual) 40L, Lymphocytes % (Manual) 26, Monocytes % (Manual) 8, Eosinophils % ( Manual) 0, Basophils % (Manual) 0, Metamyelocytes % 1H, Myelocytes % 2H, Band Neutrophils 23H, Nucleated Red Blood Cells 6, Reactive Lymphocytes 1+, Platelet Estimate DecreasedL, Platelet Morphology Normal, Polychromasia 1+, Anisocytosis 1+, Macrocytosis 1+, Sodium Level 135L, Potassium Level 3.7, Chloride Level 94L , Carbon Dioxide Level 16L, Anion Gap 25H, Blood Urea Nitrogen 65H, Creatinine 3.3H, Estimat Glomerular Filtration Rate 19.4, Glucose Level 109H, Lactic Acid Level 16.00H, Calcium Level 9.1, Phosphorus Level 11.6H, Magnesium Level 4.2H, Total Bilirubin 1.0, Aspartate Amino Transf (AST/SGOT) 66H, Alanine Aminotransferase (ALT/SGPT) 21, Alkaline Phosphatase 172H, Total Creatine Kinase 19L, Creatine Kinase MB 0.8, Creatine Kinase MB Relative Index 4.2, Troponin I 0.000, Pro-B-Type Natriuretic Peptide 4385H, Total Protein 6.4, Albumin 1.6L, Globulin 4.8, Albumin/Globulin Ratio 0.3L 08/29/19 17:14: Urine Color Brown, Urine Appearance Slightly cloudy, Urine pH 5, Urine Specific [place] 1.015, Urine Protein 2+H, Urine Glucose (UA) Negative, Urine Ketones 1+H , Urine Blood 4+H, Urine Nitrite Negative, Urine Bilirubin 1+H, Urine Ictotest Negative, Urine Urobilinogen 8H, Urine Leukocyte Esterase 1+H, Urine RBC 5-10H, Urine WBC 15-20H, Urine Squamous Epithelial Cells Few, Urine Bacteria ModerateH 08/29/19 18:00: White Blood Count [Pending], Lactic Acid Level 10.60H, Lymphocytes [Pending], Percent CD3 Cells [Pending], Absolute CD3 Count [Pending], Percent CD4 Cells [ Pending], Absolute CD4 Count [Pending], T-Lymphocyte CD4/CD8 Ratio [Pending], Percent CD8 Cells [Pending], Absolute CD8 Count [Pending] 08/29/19 18:29: Arterial Blood pH 7.086*L, Arterial Blood Partial Pressure CO2 52.0H, Arterial Blood Partial Pressure O2 142.8H, Arterial Blood HCO3 15.3*L, Arterial Blood Oxygen Saturation 97.1, Arterial Blood Base Excess -13.9*L, Kash Test Positive 08/29/19 20:26: Arterial Blood pH 7.068*L, Arterial Blood Partial Pressure CO2 70.5*H, Arterial Blood Partial Pressure O2 79.5, Arterial Blood HCO3 19.9L, Arterial Blood Oxygen Saturation 86.2*L, Arterial Blood Base Excess -10.0*L, Kash Test Positive 08/29/19 22:12: Arterial Blood pH 7.206*L, Arterial Blood Partial Pressure CO2 53.7H, Arterial Blood Partial Pressure O2 146.3H, Arterial Blood HCO3 20.8L, Arterial Blood Oxygen Saturation 97.6, Arterial Blood Base Excess -6.9L, Kash Test Positive 08/29/19 22:45: Lactic Acid Level 11.20H 08/30/19 00:57: Lactic Acid Level 14.80H 08/30/19 05:30: Lactic Acid Level 27.20H, White Blood Count 2.8L, Red Blood Count 2.12L, Hemoglobin 5.9#*L, Hematocrit 20.7#L, Mean Corpuscular Volume 98, Mean Corpuscular Hemoglobin 27.8, Mean Corpuscular Hemoglobin Concent 28.5L, Red Cell Distribution Width 19.3H, Platelet Count 21#L, Mean Platelet Volume 14.6H, Neutrophils (%) (Auto) , Lymphocytes (%) (Auto) , Monocytes (%) (Auto) , Eosinophils (%) (Auto) , Basophils (%) (Auto) , Differential Total Cells Counted 100, Neutrophils % (Manual) 51, Lymphocytes % (Manual) 39, Monocytes % ( Manual) 5, Eosinophils % (Manual) 0, Basophils % (Manual) 0, Band Neutrophils 5 , Nucleated Red Blood Cells 16, Platelet Estimate DecreasedL, Platelet Morphology Normal, Polychromasia 1+, Hypochromasia 1+, Anisocytosis 2+, Sodium Level 140, Potassium Level 5.2H, Chloride Level 101, Carbon Dioxide Level 7*L, Anion Gap 30H, Blood Urea Nitrogen 55H, Creatinine 2.6H, Estimat Glomerular Filtration Rate 25.5, Glucose Level 111H, Calcium Level 7.0#L 08/30/19 05:42: Arterial Blood pH 6.807*L, Arterial Blood Partial Pressure CO2 40.1, Arterial Blood Partial Pressure O2 100.6H, Arterial Blood HCO3 6.2*L, Arterial Blood Oxygen Saturation 90.1L, Arterial Blood Base Excess -25.6*L, Kash Test Height (Feet): 5 Height (Inches): 6.00 Weight (Pounds): 151 Rafael Velázquez MD Aug 30, 2019 10:31
[2019-08-30] MEDS ORDERED: Tubing IV Secondary IV ONE (11:49)
[2019-08-30] MEDS ORDERED: D5W 275ml ONE (11:49)
--- NOTE | 2019-08-30 13:10 | NUR ---
Fentanyl IVPB noted in room and returned to pharmacy. Approximately 95 cc wasted with [place] from pharmacy.
--- NOTE | 2019-08-30 13:47 | Diagnostic Imaging Report ---
Indication: Dyspnea Comparison: 08/29/2019 at 18:44 A single view chest radiograph was obtained. Findings: Performed 21:06. Interval intubation noted. Endotracheal tube is 2 cm above the yoselin in good position. Extensive infiltrates versus pulmonary edema with both interstitial and airspace opacities bilaterally. Pulmonary vascularity is prominent. Findings appear worse compared to prior study. Heart is enlarged. Atelectasis of the right upper lobe suspected. Right jugular line as stable. IMPRESSION: Endotracheal tube in good position
--- NOTE | 2019-08-30 13:49 | Diagnostic Imaging Report ---
Indication: Dyspnea Comparison: 16:47 A single view chest radiograph was obtained. Findings: Performed 18:44 Pulmonary edema appears worse. Airspace disease in the left upper lobe persists. Heart size remains stable. Right jugular catheter has been placed. The tip is projected over the right atrium. There is no pneumothorax. Suspected atelectasis of the right upper lobe noted. IMPRESSION: Right jugular line in good position. No pneumothorax. Worsening pulmonary edema. Interstitial/airspace opacities. Superimposed pneumonia not excluded
--- NOTE | 2019-08-30 13:50 | Diagnostic Imaging Report ---
Indication: Dyspnea Comparison: None A single view chest radiograph was obtained. Findings: Interstitial densities and prominent vascularity demonstrated bilaterally. There is a focus of airspace disease in the left upper lobe and atelectasis of the right upper lobe noted. Heart is mildly enlarged. Bones are osteopenic. There is slight tenting of the right pleur. Small effusion not excluded. IMPRESSION: Mixed interstitial alveolar densities. CHF is suspected. There may be superimposed pneumonia. Clinical correlation recommended
--- NOTE | 2019-08-30 16:15 | History and Physical Report ---
DATE OF ADMISSION: 08/29/2019 SOURCE OF INFORMATION: Family members and EMR. HISTORY OF PRESENT ILLNESS: The patient is a 59-year-old male who came to the ER with encouragement of the male partner. The patient had decided not to take his medications for a long time. Per partner, the patient had been suffering from depression and had not been taking neither his HIV medication nor his cancer medications. At the time of evaluation, the patient is intubated, has been seen and examined in the ICU. REVIEW OF SYSTEMS: Limited as above. SOCIAL HISTORY: The patient living with his male partner. The patient has a history of HIV, longstanding HIV, longstanding history of noncompliance with the medication and treatment. PAST MEDICAL HISTORY: 1. Including but not limited to lung cancer about 2 to 3 years ago, status post completion of the chemotherapy and radiation therapy. 2. HIV. FAMILY HISTORY: Reviewed and noncontributory. LABORATORY AND DIAGNOSTIC DATA: Imaging, abdominal x-ray dated 08/30/2019 reviewed. PHYSICAL EXAMINATION: VITAL SIGNS: BP: on pressorors . The patient is intubated and connected to the vent. The vent settings are reviewed. HEENT: Head and neck, atraumatic and normocephalic. CHEST: Diffuse bronchial breathing sounds. HEART: S1 and S2. Regular rate and rhythm. ABDOMEN: Protuberant, soft. NEUROLOGIC: The patient is intubated, sedated, limited source of information. LABORATORY DATA: Dated 08/29/2019 shows WBC 4.2, hemoglobin of 10.1, platelet of 86. Lactic acid of 10.6. UA positive for 15 wbc's, positive for bacteria. ASSESSMENT AND PLAN: 1. Septic shock. 2. UTI. 3. Lung cancer/history of. 4. DIC. 5. Acute anemia. 6. Renal failure. 7. GI and DVT prophylaxis. PLAN OF CARE: The patient admitted as a Full Code. We will continue with the current empiric antibiotic treatment, supportive care, and intubation. COMMENTS: The time of this dictation does not reflect the actual time of encounter. Rafael Velázquez M.D. DR: Abbey JOB#: [id number] CC: BEVERLY
--- NOTE | 2019-08-31 12:55 | Discharge Summary ---
Discharge Summary Discharge Summary _ SUMMARY DATE OF ADMISSION: 08/29/2019 DATE OF EXPIRATION: 08/30/2019 REASON FOR ADMISSION: 59 years old male with past medical history of HIV, nonspecified intrathoracic surgery presented for evaluation due to shortness of breath . According to paramedics , they were called to the house for worsening respiratory status . P martina had difficulty breathing and WAS coughing over the past few days. Patient was confused and mostly nonverbal , able to provide much of the history. In in the field patient was tachypneic and hypoxic , saturating in the low 80s . but improved with a nonrebreathing mask. Patient was also hypotensive with systolic BP being in the 70s. No IV fluids were started due to diffuse crackles heard on auscultation and concern for fluid overload. Upon evaluation in ED blood pressure was 73/40 ,patient was tachycardic and tachypneic . Patient initially was placed on simple mask of 10 L of oxygen and saturated 94% . ABG revealed evidence of metabolic acidosis with pH 7.19, PCO2 34 and bicarbonate 12.8. Laboratory work-up revealed lactic acid of 16. BUN 65, creatinine 3.3. Glucose 109. Phosphorus 11.6, magnesium 4.2. AST 66 , ALT 21. Troponin negative, pro BNP 4385. WBC 4.2 hemoglobin 10.1 ,hematocrit 34.5 , platelet counts 86. Urinalysis revealed evidence of UTI with pyuria ,+1 leukocyte esterase , moderate bacteria and +2 protein. Chest x-ray demonstrated mixed interstitial and alveolar densities. CHF was suspected. Possibly superimposed pneumonia. Central line was placed for pressors. After following up with series of ABGs, patient was intubated due to worsening respiratory failure and admitted to ICU for further management. CONSULTANTS: pulmonary Dr. Wolf [facility] COURSE: Patient admitted to ICU. Ventilator support and pulmonary toilet via N provided . Melter Super[employer] followed. Ventilator settings adjusted based on the ABG as per jewel bearing polisher. Patient started on empiric antibiotics and IV steroids. Pressors titrated to keep mean arterial blood pressure above 65. Blood culture revealed gram-positive cocci. Urine culture was negative. Sputum culture pending at the time of this dictation, and influenza swab was negative. Ventilator settings titrated based on ABG results. The next day hemoglobin from 10.1 down to 5.9. Platelet count 21 from initial 86, and WBC down to 2.8 from 4.2. T-cell subsets count revealed CD4 of 20, placing patient in AIDS category . Family meeting was took place at the patient's bedside with patient's partner and his sister. Patient remained hemodynamically unstable, intubated, with severe anemia , pneumonia , sepsis, AIDS underlying on chronic medical comorbidities. Poor prognosis was discussed with the family. CODE STATUS subsequently was changed to DNR/DNI on 08/30. Patient started on empiric Bactrim. Sputum for PCP was ordered. Patient received IV bicarbonate. Transfusion was ordered. GI prophylaxis provided. Patient's condition continued to deteriorate , and he was subsequently pronounced at 7:20 AM on . Cause of : cardiopulmonary arrest. FINAL DIAGNOSES: Sepsis with gram-positive bacteremia Septic shock Pneumonia Acute respiratory failure , requiring intubation RUL lung cancer Acute kidney injury HIV/AIDS Acute anemia Possible GI bleeding Thrombocytopenia Possible COPD History of hypertension History of thoracic surgery I have been assigned to dictate discharge summary for this account. I was not involved in the patient's management. Jada Cota NP Aug 31, 2019 12:55
--- NOTE | 2019-09-02 09:10 | NUR ---
*-* INSURANCE *-* ALL AVAILABLE CLINICALS HAVE BEEN FAXED TO: [facility] [place]: TARIK P- [phone] F- [phone]....REVIEW/CLINICAL
== END 2019-08-30 11:50 | disposition expired | DRG 974 ==
LOC: EDBD 16:32 → EMR 17:11 → EDBEDREQ 17:42 → EDBEDREQSVC 17:42 → ICU 18:11 → EDBEDREQ 23:46
PROC: 5A1935Z Respiratory Ventilation, Less than 24 Consecutive Hours (ICD-10-PCS; principal; 2019-08-29)
PROC: 0BH17EZ Insertion of Endotracheal Airway into Trachea, Via Natural or Artificial Opening (ICD-10-PCS; principal; 2019-08-29)
DX: A41.9 Sepsis, unspecified organism (principal); R65.21 Severe sepsis with septic shock; B20 Human immunodeficiency virus [HIV] disease; J18.9 Pneumonia, unspecified organism; J96.01 Acute respiratory failure with hypoxia; N17.9 Acute kidney failure, unspecified; C34.91 Malignant neoplasm of unspecified part of right bronchus or lung; N39.0 Urinary tract infection, site not specified; K92.2 Gastrointestinal hemorrhage, unspecified; D64.9 Anemia, unspecified; J44.9 Chronic obstructive pulmonary disease, unspecified; Z66 Do not resuscitate; Z91.14 Patient's other noncompliance with medication regimen
CPT/HCPCS: 31500; 36415; 36600; 71045; 74018; 80048; 80053; 81003; 82550; 82553; 82803; 83605; 83735; 83880; 84100; 84484; 85007; 85025; 86360; 86710; 87040; 87070; 87081; 87086; 87181; 87205; 93005; 94002; 94003; 94664; 96365; 96367; 96368; 96375; 99291; J2370; J7030; J7620